=== PATIENT | female | born 1970 | race Caucasian/White ===

== ENCOUNTER 2016-11-22 18:44 | Emergency (ER) | payer SELFPAY ==
--- NOTE | 2016-11-22 19:06 | ER Document Report ---
ED Medical Screen (RME) - General Stated Complaint: TOE PAIN Time seen by provider: 19:03 Mode of Arrival: Ambulatory Information source: Patient Notes: 46-year-old female presents to ED for an ingrown toenail to the right great toe. She states that this been hurting for 3 months and she just kept thinking it would stop hurting but it has not instead is getting worse and worse pain I have greeted and performed a rapid initial assessment of this patient. A comprehensive ED assessment and evaluation of the patient, analysis of test results and completion of medical decision making process will be conducted by an additional ED providers. TRAVEL OUTSIDE OF THE [place] IN LAST 30 DAYS: No - Related Data Allergies/Adverse Reactions: No Known Allergies Allergy (Verified 11/26/15 13:57) Past Medical History - Past Medical History Cardiac Medical History: Reports: Hx Hypertension Denies: Hx Coronary Artery Disease, Hx Heart Attack Pulmonary Medical History: Denies: Hx Asthma, Hx Bronchitis, Hx COPD, Hx Pneumonia Neurological Medical History: Denies: Hx Cerebrovascular Accident, Hx Seizures GI Medical History: Reports: Hx Hepatitis - hep C Musculoskeltal Medical History: Reports Hx Arthritis - RA Infectious Medical History: Reports: Hx Hepatitis - hep C Past Surgical History: Reports: Hx Gynecologic Surgery - nova sure, Hx Hysterectomy. Denies: Hx Pacemaker - Immunizations Immunizations up to date: Yes Hx Diphtheria, Pertussis, Tetanus Vaccination: Yes Physical Exam - Vital signs Vitals: Temp Pulse Resp BP Pulse Ox 98.8 F 94 20 118/72 97 11/22/16 18:56 11/22/16 18:56 11/22/16 18:56 11/22/16 18:56 11/22/16 18:56 Course - Vital Signs Vital signs: Temp Pulse Resp BP Pulse Ox 98.8 F 94 20 118/72 97 11/22/16 18:56 11/22/16 18:56 11/22/16 18:56 11/22/16 18:56 11/22/16 18:56
[2016-11-22] MEDS ORDERED: KETOROLAC TROMETHAMINE 60 MG/2 ML SDV IM ONE (19:56)
--- NOTE | 2016-11-22 20:02 | ER Document Report ---
ED Extremity Problem, Lower - General Chief Complaint: Foot Pain Stated Complaint: TOE PAIN Time seen by provider: 19:57 Mode of Arrival: Ambulatory TRAVEL OUTSIDE OF THE [place] IN LAST 30 DAYS: No - HPI Location: Great Toe - pt with recurring issues with ingrown toenail on R great toe for the past 3 months. Has had nail plate removed and now she feels "it's not growing back correctly." Also with some redness around lateral aspect of toe. - Related Data Allergies/Adverse Reactions: No Known Allergies Allergy (Verified 11/22/16 19:06) Past Medical History - General Information source: Patient - Social History Smoking Status: Current Every Day Smoker Chew tobacco use (# tins/day): No Frequency of alcohol use: Occasional Drug Abuse: None Family History: Reviewed & Not Pertinent Patient has suicidal ideation: No Patient has homicidal ideation: No - Past Medical History Cardiac Medical History: Reports: Hx Hypertension Denies: Hx Coronary Artery Disease, Hx Heart Attack Pulmonary Medical History: Denies: Hx Asthma, Hx Bronchitis, Hx COPD, Hx Pneumonia Neurological Medical History: Denies: Hx Cerebrovascular Accident, Hx Seizures Renal/ Medical History: Denies: Hx Peritoneal Dialysis GI Medical History: Reports: Hx Hepatitis - hep C Musculoskeltal Medical History: Reports Hx Arthritis - RA Infectious Medical History: Reports: Hx Hepatitis - hep C Past Surgical History: Reports: Hx Gynecologic Surgery - nova sure, Hx Hysterectomy. Denies: Hx Pacemaker - Immunizations Immunizations up to date: Yes Hx Diphtheria, Pertussis, Tetanus Vaccination: Yes Review of Systems - Review of Systems Constitutional: No symptoms reported EENT: No symptoms reported Cardiovascular: No symptoms reported Respiratory: No symptoms reported Musculoskeletal: See HPI, Other - R greeat toe. Physical Exam - Vital signs Vitals: Temp Pulse Resp BP Pulse Ox 98.8 F 94 20 118/72 97 11/22/16 18:56 11/22/16 18:56 11/22/16 18:56 11/22/16 18:56 11/22/16 18:56 - General General appearance: Appears well In distress: Mild - Extremities Foot: Tender - there is min-mod TTP of the R great toe diffusely without swelling. The nail plate is intact with red greenlandic. There is some minimal erythema of the lateral aspect of the toe but no expressable discharge Course - Re-evaluation Re-evalutation: 11/22/16 20:18 pt. felt better after IM toradol -- expressed desire to go home - Vital Signs Vital signs: Temp Pulse Resp BP Pulse Ox 98.8 F 94 20 118/72 97 11/22/16 18:56 11/22/16 18:56 11/22/16 18:56 11/22/16 18:56 11/22/16 18:56 Discharge - Discharge Clinical Impression: Cellulitis of toe of right foot Condition: Stable Disposition: HOME, SELF-CARE Additional Instructions: rest, take meds as prescribed, return if worse Prescriptions: Cephalexin Monohydrate [Keflex 500 mg Capsule] 500 mg PO QID #20 capsule Etodolac [Etodolac ER] 400 mg PO BID #14 tab.sr.24h
[2016-11-22 20:46] VITALS: BP 130/71
== END 2016-11-22 20:36 | disposition home or self-care (01) ==
LOC: ER 18:44
DX: L03.031 Cellulitis of right toe (principal); Z98.890 Other specified postprocedural states; F17.200 Nicotine dependence, unspecified, uncomplicated; I10 Essential (primary) hypertension
CPT/HCPCS: 99283; 96372; J1885

== ENCOUNTER 2017-07-27 12:10 | Emergency (ER) | payer SELFPAY ==
--- NOTE | 2017-07-27 14:28 | ER Document Report ---
ED Extremity Problem, Lower - General Chief Complaint: Leg Pain Stated Complaint: LEFT LEG PAIN Time Seen by Provider: 07/27/17 13:28 Mode of Arrival: Ambulatory Information source: Patient Notes: 46-year-old female presents to ED for pain in her left calf since last night. She states she was trying to push her truck out of a ditch when she got stuck and had sudden pain in her left calf. She states the pain has been increasing since she walked. She states she is somewhat able to walk on this leg at this time. TRAVEL OUTSIDE OF THE [place] IN LAST 30 DAYS: No - HPI Patient complains to provider of: Injury, Pain, Swelling Location: Leg - Left Occurred: Yesterday Where: Home, Outdoors Onset/Duration: Sudden, Persistent, Worse Quality of pain: Sharp, Throbbing Severity: Moderate Pain Level: 4 Context: Other - Strained calf Recent injury: Yes - while trying to push a car at of the ditch Associated symptoms: Painful ambulation Exacerbated by: Hanging down, Movement, Walking Relieved by: Ice, Rest - Related Data Allergies/Adverse Reactions: No Known Allergies Allergy (Verified 07/27/17 12:20) Past Medical History - General Information source: Patient - Social History Smoking Status: Current Every Day Smoker Cigarette use (# per day): Yes - 1/2-3/4 pack per day Chew tobacco use (# tins/day): No Smoking Education Provided: Yes - Less than 2 minutes Frequency of alcohol use: Occasional Drug Abuse: None Occupation: None Lives with: Spouse/Significant other Family History: Arthritis, CVA, Hyperlipidemia, Hypertension, Malignancy, Thyroid Disfunction. denies: CAD, COPD, DM Patient has suicidal ideation: No Patient has homicidal ideation: No - Past Medical History Cardiac Medical History: Reports: Hx Hypertension Pulmonary Medical History: Reports: None Neurological Medical History: Reports: None Endocrine Medical History: Reports: Other - Thyroid cyst Renal/ Medical History: Reports: Other - Fibroid cyst Malignancy Medical History: Reports: None GI Medical History: Reports: Hx Hepatitis - hep C Musculoskeltal Medical History: Reports Hx Arthritis - RA, Reports Hx Musculoskeletal Trauma Skin Medical History: Reports None Psychiatric Medical History: Reports: None Traumatic Medical History: Reports: None Infectious Medical History: Reports: Hx Hepatitis - hep C Past Surgical History: Reports: Hx Gynecologic Surgery - nova sure, Hx Hysterectomy, Hx Thyroid Surgery - Thyroid cyst removed - Immunizations Immunizations up to date: Yes Hx Diphtheria, Pertussis, Tetanus Vaccination: Yes Review of Systems - Review of Systems Constitutional: No symptoms reported EENT: No symptoms reported Cardiovascular: No symptoms reported Respiratory: No symptoms reported Gastrointestinal: No symptoms reported Genitourinary: No symptoms reported Female Genitourinary: No symptoms reported Musculoskeletal: Muscle pain, Muscle stiffness Skin: No symptoms reported Hematologic/Lymphatic: No symptoms reported Neurological/Psychological: No symptoms reported -: Yes All other systems reviewed and negative Physical Exam - Vital signs Vitals: Temp Pulse Resp BP Pulse Ox 98.0 F 94 16 124/73 97 07/27/17 12:22 07/27/17 12:22 07/27/17 12:22 07/27/17 12:22 07/27/17 12:22 Interpretation: Normal - General General appearance: Appears well, Alert - HEENT Head: Normocephalic, Atraumatic Eyes: Normal Pupils: PERRL - Respiratory Respiratory status: No respiratory distress Chest status: Nontender Breath sounds: Normal Chest palpation: Normal - Cardiovascular Rhythm: Regular Heart sounds: Normal auscultation Murmur: No - Abdominal Inspection: Normal Distension: No distension Bowel sounds: Normal Tenderness: Nontender Organomegaly: No organomegaly - Back Back: Normal, Nontender - Extremities General upper extremity: Normal inspection, Nontender, Normal color, Normal ROM , Normal temperature General lower extremity: Normal inspection, Normal color, Normal ROM, Normal temperature. No: Magdiel's sign Calf: Tender. No: Unable to bear weight - States is too painful to step on now she has been walking on it but now is too painful - Neurological Neuro grossly intact: Yes Cognition: Normal Orientation: AAOx4 Charmaine Coma Scale Eye Opening: Spontaneous Charmaine Coma Scale Verbal: Oriented Charmaine Coma Scale Motor: Obeys Commands [place] Coma Scale Total: 15 Speech: Normal Motor strength normal: LUE, RUE, LLE, RLE Sensory: Normal - Psychological Associated symptoms: Normal affect, Normal mood - Skin Skin Temperature: Warm Skin Moisture: Dry Skin Color: Normal Course - Re-evaluation Re-evalutation: 07/27/17 16:23 Discussed labs and x-rays with patient and Dr. Yu. Will treat patient with NSAIDs and muscle relaxers. Patient instructed on ice and elevation. Patient states she already has ibuprofen 800s at home and does not need a prescription for those. Patient does not work and does not need a work note. Patient states she does not have any insurance but I instructed her that she does need to follow-up with a primary doctor. - Vital Signs Vital signs: Temp Pulse Resp BP Pulse Ox 97.2 F 74 20 132/87 H 99 07/27/17 16:51 07/27/17 16:51 07/27/17 16:51 07/27/17 16:51 07/27/17 16:51 - Laboratory Result Diagrams: 07/27/17 14:25 07/27/17 14:25 Laboratory results interpreted by me: 07/27/17 07/27/17 07/27/17 14:25 14:25 15:20 WBC 11.0 H Creatine Kinase 234 H Urine Blood SMALL H - Diagnostic Test Radiology reviewed: Image reviewed, Reports reviewed Discharge - Discharge Clinical Impression: Muscle strain, lower leg Qualifiers: Encounter type: initial encounter Laterality: left Qualified Code(s): S86.912A - Strain of unspecified muscle(s) and tendon(s) at lower leg level, left leg, initial encounter Condition: Stable Disposition: HOME, SELF-CARE Additional Instructions: MUSCLE STRAIN: You have strained a muscle -- torn the fibers within the muscle. This often occurs with strenuous exertion, or during an injury that suddenly stretches the muscle. The seriousness of a strain varies. Some strains heal within days, others cause problems for months. X-rays cannot show a muscle strain. X-rays are taken only if symptoms suggest that a fracture could be present. The usual treatment of a muscle strain is rest and ice packs. Sometimes, a sling, splint, or crutches may be necessary to rest the muscle. The muscle can be used again once pain subsides. Severe strains require a special exercise and stretching program to prevent permanent stiffness and disability. Your doctor will advise you if this will be necessary. Call the doctor immediately if pain or swelling becomes severe, or if numbness or discoloration develop. USE OF TYLENOL (ACETAMINOPHEN): Acetaminophen may be taken for pain relief or fever control. It's much safer than aspirin, offering a wider range of "safe" dosages. It is safe during . Some brand names are Tylenol, Panadol, Datril, Anacin 3, Tempra, and Liquiprin. Acetaminophen can be repeated every four hours. The following are maximum recommended dosages: WEIGHT Dose Drops Elixir Chewable( 80mg) (LBS.) drprs=droppers tsp=teaspoon 6 40 mg 0.4 ml (1/2) 6-11 80 mg 0.8 ml (full) tsp 1 tab 12-16 120 mg 1 1/2 drprs 3/4 tsp 1 1/2 tabs 17-23 160 mg 2 drprs 1 tsp 2 tabs 24-30 240 mg 3 drprs 1 1/2 tsp 3 tabs 30-35 320 mg 2 tsp 4 tabs 36-41 360 mg 2 1/4 tsp 4 1/2 tabs 42-47 400 mg 2 1/2 tsp 5 tabs 48-53 480 mg 3 tsp 6 tabs 54-59 520 mg 3 1/4 tsp 6 1/2 tabs 60-64 560 mg 3 1/2 tsp 7 tabs 65-70 600 mg 3 3/4 tsp 7 1/2 tabs 71-76 640 mg 4 tsp 8 tabs 77-82 720 mg 4 1/2 tsp 9 tabs 83-88 800 mg 5 tsp 10 tabs >89 pounds or adults 650 mg to 900 mg Acetaminophen can be repeated every four hours. Maximum dose not to exceed 4000 mg a day. These maximum recommended dosages are slightly higher than the dosages written on the product container, but these dosages are very safe and below the toxic dosage for acetaminophen. ICE PACKS: Apply ice packs frequently against the painful area. Many different schedules are recommended, such as "20 minutes on, 20 minutes off" or "one hour ice, two hours rest." If you need to work, you may need to go longer between ice treatments. You should plan to have the area ice packed AT LEAST one fourth of the time. The ice should be applied over the wrap, tape, or splint, or over a layer of cloth -- not directly against the skin. Some ice bags have a built-in cloth and can be put directly on the skin. WARM PACKS: After approximately two days, apply gentle heat (such as a heating pad or hot water bottle) for about 20 to 30 minutes about every two hours -- at least four times daily. Warmth and elevation will help you make a more rapid recovery , and will ease the pain considerably. Do not use HOT heat, and never apply heat for longer than 30 minutes. The continuous heat can invisibly damage skin and muscles -- even when no burn is seen on the surface. Damaged muscles can make you MORE sore. MUSCLE RELAXERS: Muscle relaxing medications are usually prescribed for acute muscle spasm or injury to the neck and back. They are often combined with antiinflammatory pain medication for increased relief. You may stop the muscle relaxer when the pain and stiffness have improved. Start the medication again if spasms recur. Muscle relaxers may cause drowsiness, especially with the first dose. Do not operate machinery or drive while under the effects of the medication. Most muscle relaxers last up to 24 hours. Do not combine the medication with alcohol. Anti-Inflammatory Medication You have received a prescription for an antiinflammatory agent. This is an excellent, safe drug for pain control. In addition, it has potent antiinflammatory effects which are beneficial, especially in the treatment of injuries, arthritis, or tendonitis. It's best to take this medicine with food. Persons with ulcer disease or allergy to aspirin should notify their physician of this before taking this drug. Take the medication exactly as prescribed. Don't take additional doses unless instructed to do so by your doctor. If you develop wheezing, shortness of breath, hives, faintness, stomach pain, vomiting, or dark black stools, return for re-evaluation at once. FOLLOW-UP CARE: If you have been referred to a physician for follow-up care, call the physician s office for an appointment as you were instructed or within the next two days. If you experience worsening or a significant change in your symptoms, notify the physician immediately or return to the Emergency Department at any time for re-evaluation. Prescriptions: Cyclobenzaprine HCl [Flexeril 10 mg Tablet] 10 mg PO TIDP PRN #15 tab PRN Reason: Referrals: MARIELLE BUSBY MD [Primary Care Provider] - Follow up as needed
[2017-07-27 14:39] LABS: ABSOLUTE EOSINOPHILS # (AUTO) 0.1 10^3/uL (0.0-0.6); ABSOLUTE MONOCYTES (AUTO) 0.6 10^3/uL (0.1-1.4); ABSOLUTE NEUT (AUTO) 7.3 10^3/uL (1.7-8.2); BASOPHILS % (AUTO) 0.4 % (0-2); EOSINOPHILS % (AUTO) 0.6 % (0-6); HEMATOCRIT 39.8 % (36.0-47.0); HEMOGLOBIN 13.7 g/dL (12.0-15.5); HGB HCT DIFFERENCE 1.3; LYMPHOCYTES % (AUTO) 27.1 % (13-45); MEAN CORPUSCULAR HEMOGLOBIN 30.9 pg (27.0-33.4); MEAN CORPUSCULAR HGB CONC 34.4 g/dL (32.0-36.0); MEAN CORPUSCULAR VOLUME 90 fl (80-97); MONOCYTES % (AUTO) 5.7 % (3-13); RED BLOOD COUNT 4.42 10^6/uL (3.72-5.28); RED CELL DISTRIBUTION WIDTH 13.3 % (11.5-14.0); SEGMENTED NEUTROPHILS % (AUTO) 66.2 % (42-78)
[2017-07-27 15:04] LABS: ANION GAP 11 (5-19); BLOOD UREA NITROGEN 12 mg/dL (7-20); CARBON DIOXIDE 24 mmol/L (22-30); CHLORIDE 107 mmol/L (98-107); CREATINE KINASE 234 U/L (30-135); CREATININE RESULT 0.61 mg/dL (0.52-1.25); GLUCOSE 105 mg/dL (75-110); POTASSIUM 3.9 mmol/L (3.6-5.0); SODIUM 142.1 mmol/L (137-145)
--- NOTE | 2017-07-27 15:07 | RADIOLOGY REPORT (SQ) ---
EXAM DESCRIPTION: TIBIA FIBULA LEFT COMPLETED DATE/TIME: 07/27/2017 3:00 pm REASON FOR STUDY: pain and swelling after injury COMPARISON: None. NUMBER OF VIEWS: Two views. TECHNIQUE: Two radiographic images acquired of the left tibia and fibula to include the knee and ank le in at least one projection. LIMITATIONS: None. FINDINGS: MINERALIZATION: Normal. BONES: No acute fracture or dislocation. No worrisome bone lesions. SOFT TISSUES: No obvious swelling or foreign body. OTHER: No other significant finding. IMPRESSION: NEGATIVE STUDY OF THE LEFT TIBIA AND FIBULA. NO RADIOGRAPHIC EVIDENCE OF ACUTE INJURY. TECHNICAL DOCUMENTATION: JOB ID: [id number] [employer]- All Rights Reserved
[2017-07-27 15:47] LABS: APPEARANCE,URINE SLIGHTLY-CLOUDY; BILIRUBIN,URINE NEGATIVE (NEGATIVE); GLUCOSE, URINE NEGATIVE (NEGATIVE); KETONES,URINE NEGATIVE (NEGATIVE); LEUKOCYTE ESTERASE,URINE NEGATIVE (NEGATIVE); NITRITE,URINE NEGATIVE (NEGATIVE); PROTEIN,URINE NEGATIVE (NEGATIVE); URINE SPECIFIC GRAVITY 1.004; UROBILINOGEN,URINE NEGATIVE mg/dL (<2.0)
[2017-07-27 16:53] VITALS: BP 132/87
== END 2017-07-27 17:00 | disposition home or self-care (01) ==
LOC: ER 12:10
DX: S86.912A Strain of unspecified muscle(s) and tendon(s) at lower leg level, left leg, initial encounter (principal); M79.605 Pain in left leg; M79.89 Other specified soft tissue disorders; X58.XXXA Exposure to other specified factors, initial encounter; F17.210 Nicotine dependence, cigarettes, uncomplicated
CPT/HCPCS: 36415; 80048; 81001; 82550; 82553; 85025; 99284

== ENCOUNTER 2018-06-20 09:13 | Emergency (ER) | payer SELFPAY ==
[2018-06-20 09:23] VITALS: BP 139/77
[2018-06-20] MEDS ORDERED: LIDOCAINE 2% VISCOUS SOLN 20 ML UDCUP PO ONE (10:37)
--- NOTE | 2018-06-20 10:37 | ER Document Report ---
HPI - HPI Patient complains to provider of: Sore tongue and tooth pain Onset: Last week Onset/Duration: Gradual Pain Level: 4 Context: 47-year-old nondiabetic complaining of rash and soreness to her tongue and dental decay and pain in the lower left side. Patient denies any exposure or HIV. Does not take steroids and no recent antibiotics. Associated Symptoms: None Exacerbated by: Denies Relieved by: Denies Similar symptoms previously: No Recently seen / treated by doctor: No - ROS ROS below otherwise negative: Yes Systems Reviewed and Negative: Yes All other systems reviewed and negative - REPRODUCTIVE Reproductive: DENIES: : Past Medical History - General Information source: Patient - Social History Smoking Status: Current Every Day Smoker Lives with: Spouse/Significant other Family History: Arthritis, CVA, Hyperlipidemia, Hypertension, Malignancy, Thyroid Disfunction - Past Medical History Cardiac Medical History: Reports: Hx Hypertension Pulmonary Medical History: GI Medical History: Reports: Hx Hepatitis - hep C-treated Musculoskeletal Medical History: Reports Hx Arthritis - RA, Reports Hx Musculoskeletal Trauma Infectious Medical History: Reports: Hx Hepatitis - hep C Past Surgical History: Reports: Hx Gynecologic Surgery - nova sure, Hx Hysterectomy, Hx Thyroid Surgery - Thyroid cyst removed - Immunizations Immunizations up to date: Yes Hx Diphtheria, Pertussis, Tetanus Vaccination: Yes Vertical Provider Document - CONSTITUTIONAL Agree With Documented VS: Yes Exam Limitations: No Limitations - INFECTION CONTROL TRAVEL OUTSIDE OF THE [place] IN LAST 30 DAYS: No - HEENT HEENT: negative: Conjuctival Injection Notes: Mild thrush to the tongue and anterior pillars, dental decay to a partially filled tooth left lower second bicuspid, no abscess. - NECK Neck: Supple. negative: Lymphadenopathy-Left, Lymphadenopathy-Right Course - Vital Signs Vital signs: Temp Pulse Resp BP Pulse Ox 98.0 F 84 14 139/77 H 97 06/20/18 09:21 06/20/18 09:21 06/20/18 09:21 06/20/18 09:21 06/20/18 09:21 Discharge - Discharge Clinical Impression: Thrush, Glossitis, Toothache Condition: Good Disposition: HOME, SELF-CARE Instructions: Dentist, Oral Thrush ([facility]), Penicillin V K ([facility]), Toothache ([facility]) , Topical Antifungal ([facility]) Additional Instructions: Get tested for HIV at the health department Antifungal medication to get rid of the thrush See Dr. Busby for follow-up Penicillin for dental pain See the dentist Prescriptions: Nystatin 5 ml PO QID #160 ml Penicillin V Potassium [Penicillin Vk 500 mg Tablet] 500 mg PO QID #40 tablet Referrals: MARIELLE BUSBY MD [Primary Care Provider] - Follow up as needed
== END 2018-06-20 10:54 | disposition home or self-care (01) ==
LOC: ER 09:13
DX: B37.9 Candidiasis, unspecified (principal); K14.0 Glossitis; K08.9 Disorder of teeth and supporting structures, unspecified; F17.200 Nicotine dependence, unspecified, uncomplicated; Z86.19 Personal history of other infectious and parasitic diseases
CPT/HCPCS: 99283; 82962; J3490

== ENCOUNTER 2018-08-13 09:59 | Emergency (ER) | payer SELFPAY ==
[2018-08-13] MEDS ORDERED: CLINDAMYCIN 900 MG/D5W RTU 900 MG/50 ML RTUPB IV ONE (10:12)
[2018-08-13] MEDS ORDERED: FENTANYL CITRATE INJ/PF 100 MCG/2 ML AMPUL IV ONE (10:12)
[2018-08-13] MEDS ORDERED: KETOROLAC TROMETHAMINE INJ/PF 30 MG/1 ML SDV IV ONE (10:12)
--- NOTE | 2018-08-13 10:15 | ER Document Report ---
ED Medical Screen (RME) - General Chief Complaint: Abscess Stated Complaint: POSSIBLE ABSCESS Time Seen by Provider: 08/13/18 10:05 Notes: 47-year-old female patient to the emergency department complaining of severe facial pain and swelling. Was sent here by the dentist for possible abscess and IV antibiotics. States that the swelling has been there for 3 days but has gotten worse. Denies any other symptoms at this time. No allergies. I have greeted and performed a rapid initial assessment of this patient. A comprehensive ED assessment and evaluation of the patient, analysis of test results and completion of the medical decision making process will be conducted by additional ED providers. TRAVEL OUTSIDE OF THE [place] IN LAST 30 DAYS: No - Related Data Allergies/Adverse Reactions: No Known Allergies Allergy (Verified 08/13/18 10:00) Past Medical History - Social History Chew tobacco use (# tins/day): No Frequency of alcohol use: None Drug Abuse: None - Past Medical History Cardiac Medical History: Reports: Hx Hypertension Pulmonary Medical History: Denies: Hx Asthma, Hx Bronchitis, Hx COPD, Hx Pneumonia Neurological Medical History: Denies: Hx Cerebrovascular Accident, Hx Seizures Renal/ Medical History: Denies: Hx Peritoneal Dialysis GI Medical History: Reports: Hx Hepatitis - hep C Musculoskeltal Medical History: Reports Hx Arthritis - RA, Reports Hx Musculoskeletal Trauma Infectious Medical History: Reports: Hx Hepatitis - hep C Past Surgical History: Reports: Hx Gynecologic Surgery - nova sure, Hx Hysterectomy, Hx Thyroid Surgery - Thyroid cyst removed. Denies: Hx Pacemaker - Immunizations Immunizations up to date: Yes Hx Diphtheria, Pertussis, Tetanus Vaccination: Yes Physical Exam - Vital signs Vitals: Temp Pulse Resp BP Pulse Ox 99.2 F 141 H 28 H 173/129 H 98 08/13/18 10:10 08/13/18 10:10 08/13/18 10:10 08/13/18 10:10 08/13/18 10:10 - HEENT Head: Normocephalic, Atraumatic Eyes: Normal Pupils: PERRL Notes: Significant amount of facial edema noted left lower lip, there is dental caries left lower molar. Large amount of swelling to the left face. Course - Vital Signs Vital signs: Temp Pulse Resp BP Pulse Ox 99.2 F 141 H 28 H 173/129 H 98 08/13/18 10:10 08/13/18 10:10 08/13/18 10:10 08/13/18 10:10 08/13/18 10:10 Doctor's Discharge - Discharge Referrals: MARIELLE BUSBY MD [Primary Care Provider] - Follow up as needed
[2018-08-13 10:42] LABS: ABSOLUTE EOSINOPHILS # (AUTO) 0.1 10^3/uL (0.0-0.6); ABSOLUTE LYMPHOCYTES (AUTO) 1.4 10^3/uL (0.5-4.7); ABSOLUTE MONOCYTES (AUTO) 0.8 10^3/uL (0.1-1.4); ABSOLUTE NEUT (AUTO) 7.4 10^3/uL (1.7-8.2); BASOPHILS % (AUTO) 0.5 % (0-2); EOSINOPHILS % (AUTO) 0.9 % (0-6); HEMATOCRIT 43.5 % (36.0-47.0); HEMOGLOBIN 14.8 g/dL (12.0-15.5); LYMPHOCYTES % (AUTO) 13.9 % (13-45); MEAN CORPUSCULAR HEMOGLOBIN 30.7 pg (27.0-33.4); MEAN CORPUSCULAR HGB CONC 34.1 g/dL (32.0-36.0); MEAN CORPUSCULAR VOLUME 90 fl (80-97); MONOCYTES % (AUTO) 8.6 % (3-13); PLATELET COUNT 219 10^3/uL (150-450); RED BLOOD COUNT 4.82 10^6/uL (3.72-5.28); RED CELL DISTRIBUTION WIDTH 13.4 % (11.5-14.0); SEGMENTED NEUTROPHILS % (AUTO) 76.1 % (42-78); TOTAL CELLS COUNTED % (AUTO) 100 %; WHITE BLOOD COUNT 9.7 10^3/uL (4.0-10.5)
[2018-08-13] MEDS ORDERED: DEXAMETHASONE SOD PHOS INJ 10 MG/1 ML VIAL IV ONE (10:45)
[2018-08-13] MEDS ORDERED: NORMAL SALINE 1000 ML 1,000 ML IV ONE (10:48)
[2018-08-13 10:54] LABS: ANION GAP 15 (5-19); BLOOD UREA NITROGEN 9 mg/dL (7-20); CALCIUM 9.5 mg/dL (8.4-10.2); CARBON DIOXIDE 24 mmol/L (22-30); CHLORIDE 105 mmol/L (98-107); GLUCOSE 118 mg/dL (75-110); POTASSIUM 4.3 mmol/L (3.6-5.0); SODIUM 143.7 mmol/L (137-145)
--- NOTE | 2018-08-13 11:35 | RADIOLOGY REPORT (SQ) ---
EXAM DESCRIPTION: CT SOFT TISSUE NECK WITH COMPLETED DATE/TIME: 08/13/2018 11:07 am REASON FOR STUDY: facial neck swelling eval abscess COMPARISON: None. TECHNIQUE: Post IV contrasted scanning from skull base through lung apices with review of bone, soft tissue and lung windows. Reconstructed coronal and sagittal MPR images reviewed. All images stored on PACS. All CT scanners at this facility use dose modulation, iterative reconstruction, and/or weight based d osing when appropriate to reduce radiation dose to as low as reasonably achievable (ALARA). [facility]: Dose Right [facility]: CareDose [facility]: Dose Right [facility]: Teradose 4D [facility]: [facility] CONTRAST TYPE AND DOSE: contrast/concentration: Isovue 350.00 mg/ml; Total Contrast Delivered: 75.0 ml; Total Saline Delivered: 55.0 ml RENAL FUNCTION: None required. The patient is less than 50 years old. RADIATION DOSE: CT Rad equipment meets quality standard of care and radiation dose reduction techniq ues were employed. CTDIvol: 17.3 mGy. DLP: 525 mGy-cm. . LIMITATIONS: Dental streak artifact FINDINGS: SKULL BASE: Intact. MAJOR SALIVARY GLANDS: No solid or cystic masses. No inflammatory changes. LYMPHADENOPATHY: Asymmetrically prominent left cervical lymph nodes, likely reactive. MUCOSAL MASSES OR ASYMMETRY: No mucosal masses or asymmetry. LARYNX/CORDS: No abnormal findings. VASCULAR STRUCTURES: The major vessels are patent. LUNG APICES: Clear. BONES: Intact. THYROID: Normal size. No masses. PARANASAL SINUSES: Clear. OTHER: There is extensive soft tissue swelling about the left cheek and face. Although examination i n this vicinity is somewhat limited by adjacent dental streak artifact, there is no apparent defined fluid collection. IMPRESSION: There is extensive soft tissue swelling about the left cheek and face, which may reflect cellulitis and/or phlegmonous change given clinical concern for infection. Although examination in this vicinity is somewhat limited by adjacent dental streak artifact, there is no apparent defined fl uid collection. TECHNICAL DOCUMENTATION: JOB ID: [id number] Quality ID # [id number]: Final reports with documentation of one or more dose reduction techniques (e.g., Au tomated exposure control, adjustment of the mA and/or kV according to patient size, use of iterative reconstruction technique) 2010 [employer]- All Rights Reserved Reading location - IP/workstation name: [email or web address]
[2018-08-13] MEDS ORDERED: MORPHINE SULFATE 10 MG/ML INJ IV PRN (14:58)
[2018-08-13] MEDS ORDERED: ACETAMINOPHEN 325 MG TABLET PO PRN (14:59)
[2018-08-13] MEDS ORDERED: ONDANSETRON HCL INJ/PF 4 MG/2 ML SDV IV PRN (14:59)
--- NOTE | 2018-08-13 15:00 | ER Document Report ---
ED General - General Chief Complaint: Abscess Stated Complaint: POSSIBLE ABSCESS Time Seen by Provider: 08/13/18 10:05 TRAVEL OUTSIDE OF THE [place] IN LAST 30 DAYS: No - HPI Patient complains to provider of: Facial swelling Notes: Patient coming in for diffuse facial swelling gradually increasing over the last 3 days. Patient states went to her dentist earlier this morning as that she thought the swelling was due to an abscess of the tooth dentist referred her to the ER for further evaluation. Patient denies any shortness of breath denies any trouble breathing or swallowing. Patient is speaking complete sentences upon my evaluation denies a history of facial swelling in the past. Denies any recent antibiotics. Is able to tolerate her secretions no drooling - Related Data Allergies/Adverse Reactions: No Known Allergies Allergy (Verified 08/13/18 10:16) Past Medical History - Social History Smoking Status: Current Every Day Smoker Chew tobacco use (# tins/day): No Frequency of alcohol use: None Drug Abuse: None Family History: Arthritis, CVA, Hyperlipidemia, Hypertension, Malignancy, Thyroid Disfunction Patient has suicidal ideation: No Patient has homicidal ideation: No - Past Medical History Cardiac Medical History: Reports: Hx Hypertension Pulmonary Medical History: Denies: Hx Asthma, Hx Bronchitis, Hx COPD, Hx Pneumonia Neurological Medical History: Denies: Hx Cerebrovascular Accident, Hx Seizures Renal/ Medical History: Denies: Hx Peritoneal Dialysis GI Medical History: Reports: Hx Hepatitis - hep C Musculoskeletal Medical History: Reports Hx Arthritis - RA, Reports Hx Musculoskeletal Trauma Infectious Medical History: Reports: Hx Hepatitis - hep C Past Surgical History: Reports: Hx Gynecologic Surgery - nova sure, Hx Hysterectomy, Hx Thyroid Surgery - Thyroid cyst removed. Denies: Hx Pacemaker - Immunizations Immunizations up to date: Yes Hx Diphtheria, Pertussis, Tetanus Vaccination: Yes Review of Systems - Review of Systems Constitutional: No symptoms reported EENT: Other - Facial swelling Cardiovascular: No symptoms reported Respiratory: No symptoms reported Gastrointestinal: No symptoms reported Genitourinary: No symptoms reported Female Genitourinary: No symptoms reported Musculoskeletal: No symptoms reported Skin: No symptoms reported Hematologic/Lymphatic: No symptoms reported Neurological/Psychological: No symptoms reported -: Yes All other systems reviewed and negative Physical Exam - Vital signs Vitals: Temp Pulse Resp BP Pulse Ox 99.2 F 141 H 28 H 173/129 H 98 08/13/18 10:10 08/13/18 10:10 08/13/18 10:10 08/13/18 10:10 08/13/18 10:10 Interpretation: Normal - General General appearance: Appears well, Alert - HEENT Head: Normocephalic, Atraumatic Eyes: Normal Pupils: PERRL Notes: Significant swelling of the face with erythema starting zygomatic arch going down to the left side of the face lower lip. The submental region is soft there is no elevation of the patient's tongue. Patient is able to perform mouth however not fully and able to examine intraoral cavity showing poor dentition with a cavity tooth #[id number] with no signs of gingival cellulitis or obvious intraoral abscess - Respiratory Respiratory status: No respiratory distress Chest status: Nontender Breath sounds: Normal Chest palpation: Normal - Cardiovascular Rhythm: Regular Heart sounds: Normal auscultation Murmur: No - Abdominal Inspection: Normal Distension: No distension Bowel sounds: Normal Tenderness: Nontender Organomegaly: No organomegaly - Back Back: Normal, Nontender - Extremities General upper extremity: Normal inspection, Nontender, Normal color, Normal ROM , Normal temperature General lower extremity: Normal inspection, Nontender, Normal color, Normal ROM , Normal temperature, Normal weight bearing. No: Magdiel's sign - Neurological Neuro grossly intact: Yes Cognition: Normal Orientation: AAOx4 [place] Coma Scale Eye Opening: Spontaneous [place] Coma Scale Verbal: Oriented [place] Coma Scale Motor: Obeys Commands [place] Coma Scale Total: 15 Speech: Normal Motor strength normal: LUE, RUE, LLE, RLE Sensory: Normal - Psychological Associated symptoms: Normal affect, Normal mood - Skin Skin Temperature: Warm Skin Moisture: Dry Skin Color: Normal Course - Re-evaluation Re-evalutation: 08/13/18 14:[address] scan findingsWith our hospitalist here however concern the patient may need oral maxilla facial surgery requested transfer to tertiary care facility. Discussed with Dr. Carney at [facility] who agrees to set the patient in transfer. Pain medications antibiotics and steroids will continue to be given to the patient. - Vital Signs Vital signs: Temp Pulse Resp BP Pulse Ox 99.2 F 141 H 20 122/87 H 95 08/13/18 10:10 08/13/18 10:10 08/13/18 14:00 08/13/18 13:01 08/13/18 13:01 - Laboratory Result Diagrams: 08/13/18 10:22 08/13/18 10:22 Laboratory results interpreted by me: 08/13/18 10:22 Glucose 118 H Discharge - Discharge Clinical Impression: Facial cellulitis, Poor dentition Condition: Good Disposition: [facility] Referrals: MARIELLE BUSBY MD [Primary Care Provider] - Follow up as needed
[2018-08-13 16:46] VITALS: BP 126/83
--- NOTE | 2018-08-13 17:22 | ER Document Report ---
Doctor's Note Notes: 08/13/18 17:22 Patient evaluated on transport to [facility] by EMS. No complaints. Stable vitals.
[2018-08-13] MEDS ORDERED: CLINDAMYCIN 900 MG/D5W RTU 900 MG/50 ML RTUPB IV SCH (18:00)
== END 2018-08-13 17:09 | disposition short-term general hospital (02) ==
LOC: ER 09:59
DX: L03.211 Cellulitis of face (principal); R51 Headache; K02.9 Dental caries, unspecified; I10 Essential (primary) hypertension; Z86.19 Personal history of other infectious and parasitic diseases; Z90.710 Acquired absence of both cervix and uterus
CPT/HCPCS: 99285; 96361; 96375; 96365; 36415; 85025; 80048; 70491; J3010; J1885; J2270; J2405; J7030; J1100